=== PATIENT | female | born 1985 | race Caucasian/White ===

== ENCOUNTER 2020-08-21 05:10 | Emergency (ER) | payer MEDICAID ==
[2020-08-21] MEDS ORDERED: XYLOCAINE 1% HCL 20 ML MDV IJ ONE (05:11)
--- NOTE | 2020-08-21 06:07 | ERPHSYRPT ---
- History of Present Illness Time Seen by Provider: 08/21/20 06:01 Source: patient Patient Subjective Stated Complaint: pt states "My tooth is killing me and I'm ready to pull it out." Triage Nursing Assessment: pt ambulated into the er; pt is axo x4; c/o left lower toothache; pt states 6/10 pain to left lower jaw; pt states she has 3 augmentin pills left; pt states that she needs the tooth pulled out; left lower tooth is decayed; pt has mild swelling to left lower jaw; pt states that pain radiates to left ear; left ear is red; pt is hypertensive; pt is grabbing left jaw Physician History: This is a 35-year-old white female who presents with left lower toothache that began yesterday. She began taking some leftover Augmentin yesterday she received from a dentist 1 month ago. She has 3 more Augmentin 500 mg left. Patient drove herself to the emergency room this morning. Timing/Duration: abrupt onset Severity: mild (To moderate) ENT Location: dental (Left lower) Prearrival Treatment: prescription meds Modifying Factors: Improves With: activity Associated Symptoms: jaw pain (Left lower), tooth pain (Left lower) Allergies/Adverse Reactions: No Known Drug Allergies Allergy (Unverified 08/21/20 05:19) Home Medications: Amoxicillin [Amoxil] 500 mg PO TID 08/21/20 [History] Hx Tetanus, Diphtheria Vaccination/Date Given: Yes Hx Influenza Vaccination/Date Given: No Hx Pneumococcal Vaccination/Date Given: No Travel Risk - International Travel Have you traveled outside of the country in past 3 weeks: No If Yes, where;: N - Coronavirus Screening Are you exhibiting any of the following symptoms?: No Close contact with a COVID-19 positive Pt in past 14-21 Days: No - Vaccine Status Have you recieved a Covid-19 vaccination: No - Review of Systems Constitutional: No Symptoms Eyes: No Symptoms Ears, Nose, & Throat: Other (Dental pain) Respiratory: No Symptoms Cardiac: No Symptoms Abdominal/Gastrointestinal: No Symptoms Genitourinary Symptoms: No Symptoms Musculoskeletal: No Symptoms Skin: No Symptoms Neurological: No Symptoms Psychological: No Symptoms Endocrine: No Symptoms Hematologic/Lymphatic: No Symptoms Immunological/Allergic: No Symptoms All Other Systems: Reviewed and Negative - Past Medical History Pertinent Past Medical History: Yes Psycho-Social History: Anxiety Other Medical History: social anxiety, OCD - Past Surgical History Past Surgical History: Yes Gastrointestinal: Other Female Surgical History: Dilation & Curettage - Social History Smoking Status: Current every day smoker Exposure to second hand smoke: No Drug Use: none Patient Lives Alone: No Significant Family History: no pertinent family hx - Female History Hx Now: No - Nursing Vital Signs Nursing Vital Signs: Initial Vital Signs Temperature 97.7 F 08/21/20 05:48 Pulse Rate 88 08/21/20 05:48 Respiratory Rate 16 08/21/20 05:48 Blood Pressure 152/85 08/21/20 05:48 O2 Sat by Pulse Oximetry 98 08/21/20 05:48 Pain Scale Pain Intensity 6 - Physical Exam General Appearance: no apparent distress, alert, anxiety Eye Exam: bilateral eye: normal inspection, PERRL, EOMI Ear Exam: bilateral ear: auricle normal Nasal Exam: normal inspection Throat Exam: normal, pharynx normal, dental tenderness, moist mucus membranes Neck Exam: normal inspection, non-tender, supple, full range of motion, trachea midline Cardiovascular/Respiratory Exam: chest non-tender, no respiratory distress Abdominal Exam: non-tender Neurologic Exam: alert, oriented x 3, cooperative, executive chef assistant II-XII nml as tested, normal mood/affect, nml cerebellar function, nml station & gait, sensation nml (Left lower dental caries with tooth fracture. No abscess present) Skin Exam: normal color, warm, dry SpO2 Interpretation: normal SpO2: 98 O2 Delivery: Room Air - Course Nursing assessment & vital signs reviewed: Yes - Progress Progress: unchanged Counseled pt/family regarding: diagnosis, need for follow-up - Departure Departure Disposition: Home Clinical Impression: Pain, dental, Dental caries Condition: Stable Critical Care Time: No Referrals: TANA ABERNATHY [Primary Care Provider] - Additional Instructions: Take antibiotics as prescribed. Use Tylenol and ibuprofen for pain control. Call your dentist tomorrow to make arrangements for definitive care. Prescriptions: Amoxicillin 500 mg Cap [Amoxil 500 mg] 500 mg PO TID #30 capsule
[2020-08-21] MEDS ORDERED: NORCO 5/325 MG PO ONE (06:14)
[2020-08-21] MEDS ORDERED: Rocephin 1000 MG INJ IM ONE (06:14)
[2020-08-21] MEDS ORDERED: Rocephin 1000 MG INJ ONE (06:17)
[2020-08-21] MEDS ORDERED: NORCO 5/325 MG ONE (06:17)
[2020-08-21 06:23] VITALS: BP 131/83; PULSE 67; O2SAT 97
== END 2020-08-21 06:33 | disposition home or self-care (01) ==
LOC: ED 05:10
DX: K02.9 Dental caries, unspecified (principal); K08.89 Other specified disorders of teeth and supporting structures
CPT/HCPCS: 96372; 99283; J0696; A9270-GY